=== PATIENT | male | born 1940 | race Two or more races ===

== ENCOUNTER 2022-06-30 15:41 | Emergency (ER) | payer MEDICARE, OTHER ==
[~2022-06-30] VITALS: Ht 175.3 cm; Wt 81.6 kg
[2022-06-30] MEDS ORDERED: BUPR-96 PO (16:15)
[2022-06-30] MEDS ORDERED: ATOR10TA PO (16:18)
[2022-06-30] MEDS ORDERED: METO25TA3 PO (16:18)
[2022-06-30] MEDS ORDERED: SITA1TAB6 PO (16:19)
[2022-06-30] MEDS ORDERED: OMEG1CAP55 PO (16:20)
[2022-06-30] MEDS ORDERED: IV NORMAL SALINE 1000 ML BAG IV ONE (16:45)
[2022-06-30] MEDS ORDERED: MECLIZINE HCL 25 MG TABLET PO ONE (17:15)
[2022-06-30] MEDS ORDERED: MECLIZINE HCL 25 MG TABLET ONE (17:15)
[2022-06-30 17:25] LABS: HEMATOCRIT 41.6 % (36.7-47.1); MEAN CORPUSCULAR HEMOGLOBIN 28.2 uug (23.8-33.4); MEAN CORPUSCULAR VOLUME 85.3 fL (73.0-96.2); PLATELET COUNT (AUTO) 159 K/uL (152-348)
[2022-06-30 17:31] LABS: CREATININE 1.1 mg/dL (0.6-1.3); POTASSIUM 3.7 mmol/L (3.5-5.1)
[2022-06-30 17:37] LABS: BILIRUBIN,TOTAL 0.4 mg/dL (0.2-1.0); TOTAL PROTEIN, SERUM 7.3 g/dL (6.4-8.2)
--- NOTE | 2022-06-30 18:47 | NUR ---
Patient discharged to home in stable condition. Written and verbal after care instructions given. Patient verbalizes understanding of instructions. Stressed follow up or return to ER for worsening s/s.
== END 2022-06-30 18:52 | disposition home or self-care (01) ==
LOC: ER 15:47
DX: R42 Dizziness and giddiness (principal); R94.31 Abnormal electrocardiogram [ECG] [EKG]; I10 Essential (primary) hypertension; Z79.899 Other long term (current) drug therapy; N40.0 Benign prostatic hyperplasia without lower urinary tract symptoms
CPT/HCPCS: 99285; 70450; 80053; 85025; 84484; 36415; 93005; 83605; J7040; A4663; J8597

== ENCOUNTER 2022-09-22 09:03 | Emergency (ER) | payer MEDICARE, OTHER ==
[~2022-09-22] VITALS: Ht 182.9 cm; Wt 83.0 kg
[~2022-09-22 09:03] MED LIST: ATOR10TA PO; BUPR-96 PO; METO25TA3 PO; OMEG1CAP55 PO; SITA1TAB6 PO
[2022-09-22] MEDS ORDERED: PROSTATE MED (09:35)
[2022-09-22] MEDS ORDERED: CANA300T PO (09:35)
[2022-09-22] MEDS ORDERED: ASPIRIN 81 MG TAB.CHEW PO ONE (09:45)
[2022-09-22] MEDS ORDERED: IV NORMAL SALINE 1000 ML BAG IV ONE (09:45)
[2022-09-22] MEDS ORDERED: MAG HYDROX/AL HYDROX/SIMETH 30 ML LIQUID UDC PO ONE (09:45)
[2022-09-22] MEDS ORDERED: FAMOTIDINE 20 MG TABLET PO ONE (09:45)
[2022-09-22] MEDS ORDERED: ASPIRIN 81 MG TAB.CHEW ONE (09:51)
[2022-09-22] MEDS ORDERED: FAMOTIDINE 20 MG TABLET ONE (09:52)
[2022-09-22] MEDS ORDERED: MAG HYDROX/AL HYDROX/SIMETH 30 ML LIQUID UDC ONE (09:53)
[2022-09-22 09:55] LABS: HEMATOCRIT 39.9 % (36.7-47.1); MEAN CORPUSCULAR HEMOGLOBIN 27.6 uug (23.8-33.4); MEAN CORPUSCULAR VOLUME 85.5 fL (73.0-96.2); PLATELET COUNT (AUTO) 159 K/uL (152-348)
[2022-09-22 10:19] LABS: ALANINE AMINOTRANSFERASE 36 U/L (16-63); ALKALINE PHOSPHATASE 61 U/L (50-136); ASPARTATE AMINOTRANSFERASE 24 U/L (15-37); BILIRUBIN,DIRECT 0.1 mg/dL (0.0-0.2); BILIRUBIN,TOTAL 0.3 mg/dL (0.2-1.0); CARBON DIOXIDE 24 mmol/L (21-32); CHLORIDE 106 mmol/L (98-107); CREATININE 1.2 mg/dL (0.6-1.3); GLUCOSE 270 mg/dL (74-106); POTASSIUM 4.5 mmol/L (3.5-5.1); UREA NITROGEN, BLOOD 17 mg/dL (7-18)
--- NOTE | 2022-09-22 10:52 | NUR ---
Patient is resting comfortably on gurney with eyes closed, intermittently using his private cellphone, NAD.
[2022-09-22 10:53] LABS: *BILIRUBIN,URIN NEGATIVE (NEGATIVE); *CLARITY,URINE CLEAR (CLEAR); *COLOR,URINE YELLOW (YELLOW); *KETONES,URINE TRACE (NEGATIVE); *UROBILINOGEN,URINE 0.2 E.U./dl (NORMAL); LEUKOCYTE ESTERASE ,URINE NEGATIVE (NEGATIVE); NITRITE, URINE NEGATIVE (NEGATIVE); PH,URINE 5.5 (5.0-8.0); UGLUCOSE 2+ (NEGATIVE)
[2022-09-22 10:55] LABS: *BLOOD, URINE TRACE (NEGATIVE)
--- NOTE | 2022-09-22 13:05 | NUR ---
Patient is for discharge,pending written discharge papers at this time.
[2022-09-22] MEDS ORDERED: FAMO-132 PO (13:16)
--- NOTE | 2022-09-22 13:21 | NUR ---
Patient discharged to home in stable condition with brisk steady gait. Written and verbal after care instructions given to patient in Congolese and Farsi. Patient verbalized understanding and compliance of instructions. Stressed follow up with primary doctor and jail officer or return to ER for worsening s/s.
[2022-09-22 17:19] LABS: BACTERIA,URINE NONE SEEN /HPF (NONE SEEN); SQUAMOUS EPITHELIAL CELL,UR FEW /HPF (NONE SEEN); WBC,URINE 0-3 /HPF (0-3)
== END 2022-09-22 13:23 | disposition home or self-care (01) ==
LOC: ER 09:03
DX: R10.13 Epigastric pain (principal); K29.70 Gastritis, unspecified, without bleeding; I11.9 Hypertensive heart disease without heart failure; Z87.891 Personal history of nicotine dependence; H91.90 Unspecified hearing loss, unspecified ear; E11.9 Type 2 diabetes mellitus without complications; N40.0 Benign prostatic hyperplasia without lower urinary tract symptoms; N42.9 Disorder of prostate, unspecified; Z79.84 Long term (current) use of oral hypoglycemic drugs; Z79.899 Other long term (current) drug therapy; F41.9 Anxiety disorder, unspecified; F32.A Depression, unspecified
CPT/HCPCS: 99285; 96360; 71045; 80076; 80048; 81001; 83880; 85025; 85730; 84484 ×2; 36415; 93005; J7040; A4663